=== PATIENT | male | born 1975 | race African-American/Black ===

== ENCOUNTER 2016-12-16 16:25 | Emergency (ER) | payer MEDICAID ==
[~2016-12-16] VITALS: Ht 200.7 cm; Wt 80.0 kg
[2016-12-16 16:32] VITALS: BP 139/90; PULSE 103; RESP 16; TEMP 97.7; O2SAT 98
--- NOTE | 2016-12-16 17:29 | PD ---
HPI Chief Complaint: Complaint Time Seen by Provider: 17:29 Travel History International Travel<30 days: No Contact w/Intl Traveler<30days: No Traveled to known affect area: No History of Present Illness HPI 41-year-old male with history of HIV is referred here from [place] [facility] with bilateral testicular pain for ultrasound of the testicles which they do not have available there. They're for presumed epididymitis and UTI with 1 g Rocephin IM and azithromycin 1 g by mouth. Patient was also given 1 Lortab 5/325 by mouth. Patient states his pain is returned to about a 9 out of 10. Patient denies dysuria, and has not tried to have sex since he started having symptoms 3 days ago. Patient has no known drug allergies. PFSH Past Medical History Blood Disorders: Yes Social History Alcohol Use: No Tobacco Use: Yes (1/2 PPD) Substance Use: No Allergies-Medications (Allergen,Severity, Reaction): Coded Allergies: No Known Allergies (Unverified , 12/16/16) Reported Meds & Prescriptions Reported Meds & Active Scripts Active Lortab (Hydrocodone-Acetaminophen) 5-325 Mg Tab 1 Tab PO Q6H PRN Ibuprofen 800 Mg Tab 800 Mg PO Q8H PRN Doxycycline Hyclate 100 Mg Cap 100 Mg PO BID 14 Days Review of Systems Except as stated in HPI: all other systems reviewed are Neg General / Constitutional: No: Fever Eyes: No: Visual changes HENT: No: Headaches Cardiovascular: No: Chest Pain or Discomfort Respiratory: No: Shortness of Breath Gastrointestinal: No: Abdominal Pain Genitourinary: Positive: Other (testicular pain and swelling.), No: Dysuria Musculoskeletal: No: Pain Skin: No Rash Neurologic: No: Weakness Psychiatric: No: Depression Endocrine: No: Polydipsia Hematologic/Lymphatic: No: Easy Bruising Physical Exam Narrative GENERAL: Patient appears in mild to moderate distress. SKIN: Warm and dry. Normal color. Normal turgor. HEAD: Atraumatic. Normocephalic. EYES: Pupils equal and round. No scleral icterus. No injection or drainage. ENT: No nasal bleeding or discharge. Mucous membranes pink and moist. Pharynx is clear. Airway is patent. NECK: Trachea midline. Supple. CARDIOVASCULAR: Regular rate and rhythm. RESPIRATORY: No accessory muscle use. Clear to auscultation. Breath sounds equal bilaterally. GASTROINTESTINAL: Abdomen soft, non-tender, nondistended. Hepatic and splenic margins not palpable. No CVA tenderness. GENITAL: Patient has bilateral testicular swelling and tenderness consistent with probable epididymitis. Ultrasound is ordered. MUSCULOSKELETAL: Extremities without clubbing, cyanosis, or edema. No obvious deformities. NEUROLOGICAL: Awake and alert. No obvious cranial nerve deficits. Motor grossly within normal limits. Five out of 5 muscle strength in the arms and legs. Normal speech. PSYCHIATRIC: Appropriate mood and affect; insight and judgment normal. Data Data Last Documented VS Vital Signs Date Time Temp Pulse Resp B/P Pulse Ox O2 Delivery O2 Flow Rate FiO2 12/16/16 18:47 98.0 89 16 122/81 99 12/16/16 16:32 Room Air Orders Us Testicles W Doppler (12/16/16 17:35) Ketorolac Inj (Toradol Inj) (12/16/16 17:45) MDM Medical Decision Making Medical Screen Exam Complete: Yes Emergency Medical Condition: Yes Medical Record Reviewed: Yes Differential Diagnosis Testicular pain. Epididymitis. Probable STD. UTI. Prostatitis. Narrative Course Patient medical stable at time of exam. Labs and medical record from [place] [facility] reviewed. Patient is given Toradol 60 mg IM and ultrasound of the testicles are ordered. Ultrasound read with no acute process per radiologist. No signs of torsion. Patient will be continued on doxycycline 100 mg twice a day 2 weeks. Patient also given ibuprofen 800 mg 3 times daily with food #30. Patient also given Lortab 5/325, 1 tab every 6 hours when necessary pain #12. Patient should follow with his local primary care physician provider or the [facility] to ensure improvement. Patient can return to the department with worsening symptoms as needed. Diagnosis Primary Impression: Testicular pain, right Additional Impressions: Epididymitis, bilateral Prostatitis Qualified Code: N41.0 - Acute prostatitis Referrals: [facility] Primary Care Physician [facility] Dept. Patient Instructions: Epididymitis (ED), General Instructions, Prostatitis (ED) , Sexually Transmitted Diseases (ED) Additional Instructions: Patient is given Toradol 60 mg IM and ultrasound of the testicles are ordered. Ultrasound read with no acute process per radiologist. No signs of torsion. Patient will be continued on doxycycline 100 mg twice a day 2 weeks. Patient also given ibuprofen 800 mg 3 times daily with food #30. Patient also given Lortab 5/325, 1 tab every 6 hours when necessary pain #12. Patient should follow with his local primary care physician provider or the [facility] to ensure improvement. Patient can return to the department with worsening symptoms as needed. Med/Other Pt SpecificInfo: Prescription(s) given Scripts Hydrocodone-Acetaminophen (Lortab)5-325 Mg Tab1 Tab PO Q6H PRN (PAIN) #12 TAB Prov:Jonh De Jesus MD 12/16/16 Ibuprofen 800 Mg Rum224 Mg PO Q8H PRN (Pain/Inflammation) #30 TAB Prov:Jonh De Jesus MD 12/16/16 Doxycycline Hyclate 100 Mg [id number] Mg PO BID 14 Days Prov:Jonh De Jesus MD 12/16/16 Disposition: 01 DISCHARGE HOME Condition: Stable Alistair Pérez Dec 16, 2016 17:29
[2016-12-16] MEDS ORDERED: KETOROLAC TROMETHAMINE 60 MG/2 ML (IM) VIAL IM ONE (17:45)
--- NOTE | 2016-12-16 18:35 | RADRPT ---
EXAM DATE/TIME: 12/16/2016 17:38 [place] COMPARISON: No previous studies available for comparison. INDICATIONS : Testicular pain. MEDICAL HISTORY : Blood disorders, unspecified. Tobacco use. SURGICAL HISTORY : None. ENCOUNTER: Initial ACUITY: 3 days PAIN SCORE: 9/10 LOCATION: Bilateral testicles. MEASUREMENTS: RIGHT TESTICLE: 5.0 x 3.4 x 2.2cm LEFT TESTICLE: 4.3 x 3.2 x 1.9cm FINDINGS: RIGHT TESTICLE: There is symmetrical flow scattered testicular calcifications and trace hydrocele. Small epididymal cysts is noted. LEFT TESTICLE: Scattered punctate calcifications are evident and trace hydrocele. SCROTUM: Within normal limits. CONCLUSION: There is no evidence for torsion. Trace hydroceles scattered testicular calcifications. Small epididymal cysts. Multiple right groin lymph nodes present. Jeffrey Morataya MD FACR on December 16, 2016 at 18:32 Board Certified Radiologist. This report was verified electronically.
[2016-12-16] MEDS ORDERED: HYDR-3533 PO (18:38)
[2016-12-16] MEDS ORDERED: DOXY100C PO (18:38)
[2016-12-16] MEDS ORDERED: IBUP800T23 PO (18:38)
[2016-12-16 18:45] VITALS: RESP 16
[2016-12-16 18:47] VITALS: BP 122/81; TEMP 98
== END 2016-12-16 18:54 | disposition home or self-care (01) ==
LOC: NEPD 16:25
DX: N45.1 Epididymitis (principal); N41.0 Acute prostatitis; F17.200 Nicotine dependence, unspecified, uncomplicated; Z21 Asymptomatic human immunodeficiency virus [HIV] infection status
CPT/HCPCS: 76870; 80053; 81001; 85025; 87077; 87086; 87186; 87491; 87591; 93975; 96372; 99285; J0696; J1885